=== PATIENT | female | born 2000 | race African-American/Black ===

== ENCOUNTER 2020-05-04 06:36 | Outpatient (CLI) | payer OTHER, SELFPAY ==
--- NOTE | 2020-05-05 11:41 | WPDNEUROLOGY ---
Neurology EEG Report General Information Date of Study: 05/04/20 TEST EEG DIAGNOSIS syncopal episode with collapse CONDITION OF RECORDING awake drowsy and sleep EEG NUMBER [id number] CLINICAL HISTORY patient reported for about last 4 years she has been losing consciousness. Before she gets stomach cramps, then visual changes and ringing in her years. She is fine afterwards. EEG DESCRIPTION Basic resting occipital frequency consists of medium voltage 8 to 10 hertz per 2nd alpha admixed with very small amount of low-voltage 15 to 18 hertz per 2nd beta. Low-voltage beta activity seen during drowsiness. Bilateral symmetrical sleep activity seen during sleep. Hyperventilation not done. Photic stimulation produced normal drive. Non paroxysmal. Nonlateralizing. Nonfocal. IMPRESSION Normal EEG during wakefulness drowsiness and sleep
--- NOTE | 2020-05-07 12:45 | WPDHOLTEREM ---
Holter/Event Monitor Holter/Event Monitor Date of procedure: 05/04/20 Procedure Type: 48 hour holter monitor Indications: Syncope Conclusion: 1. 48 hour holter monitor on 05/04/19. 2. Underlying rhythm is sinus rhythm. HR range 42-154 bpm; average HR 71 bpm. 3. No premature supraventricular complexes. No supraventricular tachycardia. 4. There is one premature ventricular complex. No ventricular tachycardia. 5. No sinoatrial or atrioventricular blocks. No significant pauses greater than 2 seconds. 6. Patient reports symptoms of rapid heart rate which demonstrate sinus rhythm with sinus arrhythmia at 61-66 bpm.
== END 2020-05-04 06:37 | disposition home or self-care (01) ==
PROVIDERS: PCP Family Medicine; Visit Provider Family Medicine
DX: R55 Syncope and collapse (principal)
CPT/HCPCS: 93225; 93226; 95816